=== PATIENT | male | born 1960 | race Caucasian/White ===

== ENCOUNTER 2025-05-21 06:55 | Day surgery (SDC) | payer OTHER ==
[2025-05-21] MEDS ORDERED: Propofol 200 MG/20 ML SDV ONE (07:05)
[2025-05-21] MEDS ORDERED: Midazolam 1 MG/ML 2 ML SDV ONE (07:06)
[2025-05-21] MEDS ORDERED: fentaNYL 50 MCG/ML SDV ONE (07:06)
[2025-05-21] MEDS: Lactated Ringers 1,000 ML IV SCH (07:42)
== END 2025-05-21 09:35 | disposition home or self-care (01) ==
LOC: JP.SDS 06:55
PROVIDERS: ATTEND Surgery
DX: Z12.11 Encounter for screening for malignant neoplasm of colon (principal); D12.2 Benign neoplasm of ascending colon
CPT/HCPCS: 00811; 45385; J2250; J2704; J3010; J7120